=== PATIENT | female | born 2000 | race Caucasian/White ===

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

== ENCOUNTER 2020-02-05 20:23 | Emergency (ER) | payer OTHER ==
[~2020-02-05] VITALS: Ht 152.4 cm; Wt 74.4 kg
== END 2020-02-05 22:00 | disposition left against medical advice (07) ==
LOC: ED 20:23
DX: O26.893 Other specified pregnancy related conditions, third trimester (principal); O99.333 Smoking (tobacco) complicating pregnancy, third trimester; R10.2 Pelvic and perineal pain; F17.200 Nicotine dependence, unspecified, uncomplicated; Z3A.32 32 weeks gestation of pregnancy

== ENCOUNTER → 2020-02-08 | Outpatient (CLI) | payer OTHER ==
[2020-02-08 08:43] LABS: BASO % 0.4 % (0.0-1.0); EOS # 0.2 10*3/uL (0.0-0.4); EOS % 1.7 % (1.0-4.0); HEMATOCRIT 32.9 % (37.0-47.0); LYMPH # 2.6 10*3/uL (1.3-4.4); LYMPH % 24.3 % (27.0-41.0); MEAN CELL VOLUME 93.7 fl (81.0-99.0); MEAN CORPUSCULAR HGB 31.3 pg (27.0-31.0); MEAN CORPUSCULAR HGB CONC 33.4 g/dl (33.0-37.0); MEAN PLATELET VOLUME 10.5 fl (9.6-12.3); MONO # 0.9 10*3/uL (0.1-1.0); NEUT % 64.3 % (47.0-73.0); PLATELET COUNT AUTOMATED 160 10*3/uL (130-400); RED BLOOD COUNT 3.51 10*6/uL (4.10-5.10); RED CELL DISTRI WIDTH 12.6 % (0-14.5); WHITE BLOOD COUNT 10.9 10*3/uL (4.8-10.8)
[2020-02-08 09:39] VITALS: BP 92/44
== END | disposition home or self-care (01) ==
LOC: INJECTION 02-07 09:00 → LAB 08:23 → INJECTION 10:00
PROVIDERS: Obstetrics & Gynecology
DX: O26.893 Other specified pregnancy related conditions, third trimester (principal); O24.419 Gestational diabetes mellitus in pregnancy, unspecified control; O99.333 Smoking (tobacco) complicating pregnancy, third trimester; F17.200 Nicotine dependence, unspecified, uncomplicated; Z3A.32 32 weeks gestation of pregnancy; Z67.41 Type O blood, Rh negative

== ENCOUNTER → 2020-02-14 | Outpatient (CLI) | payer OTHER | END | disposition home or self-care (01) | LOC: LAB 08:42 | DX: R73.09 Other abnormal glucose (principal) ==

== ENCOUNTER 2020-12-28 16:00 | Emergency (ER) | payer OTHER ==
[~2020-12-28] VITALS: Ht 152.4 cm; Wt 63.5 kg
[2020-12-28 16:34] LABS: BASO # 0.1 10*3/uL (0.0-0.1); BASO % 0.6 % (0.0-1.0); EOS # 0.1 10*3/uL (0.0-0.4); LYMPH # 2.6 10*3/uL (1.3-4.4); LYMPH % 26.5 % (27.0-41.0); MEAN CELL VOLUME 89.6 fl (81.0-99.0); MEAN CORPUSCULAR HGB 29.8 pg (27.0-31.0); MEAN CORPUSCULAR HGB CONC 33.3 g/dl (33.0-37.0); MEAN PLATELET VOLUME 10.6 fl (9.6-12.3); MONO # 0.5 10*3/uL (0.1-1.0); MONO % 5.2 % (3.0-9.0); NEUT # 6.6 10*3/uL (2.3-7.9); NEUT % 66.4 % (47.0-73.0); PLATELET COUNT AUTOMATED 250 10*3/uL (130-400); WHITE BLOOD COUNT 9.9 10*3/uL (4.8-10.8)
[2020-12-28 16:51] LABS: ALBUMIN 4.1 gm/dl (3.1-4.5); ALKALINE PHOSPHATASE 90 U/L (45-117); BUN 10 mg/dl (7-24); CHLORIDE 108 mmol/L (98-107); CREATININE 0.63 mg/dL (0.55-1.02); POTASSIUM 3.6 mmol/L (3.5-5.1); SGOT/AST 10 IU/L (3-35); SGPT/ALT 20 U/L (12-78); SODIUM 139 mmol/L (136-145); TOTAL PROTEIN 7.4 gm/dL (6.4-8.2)
== END 2020-12-28 19:38 | disposition home or self-care (01) ==
LOC: ED 16:00
PROVIDERS: Physician Assistant
DX: O20.9 Hemorrhage in early pregnancy, unspecified (principal); F17.200 Nicotine dependence, unspecified, uncomplicated; Z3A.01 Less than 8 weeks gestation of pregnancy

== ENCOUNTER → 2021-02-20 | Outpatient (CLI) | payer OTHER | END | disposition home or self-care (01) | LOC: US 15:30 | PROVIDERS: ATTEND Nurse Practitioner Women's Health | DX: Z34.82 Encounter for supervision of other normal pregnancy, second trimester (principal); Z3A.14 14 weeks gestation of pregnancy ==

== ENCOUNTER 2022-08-18 10:01 | Emergency (ER) | payer OTHER ==
[~2022-08-18] VITALS: Ht 152.4 cm; Wt 63.5 kg
== END 2022-08-18 12:58 | disposition home or self-care (01) ==
LOC: ED 10:01
DX: O21.9 Vomiting of pregnancy, unspecified (principal); Z20.822 Contact with and (suspected) exposure to COVID-19; Z3A.01 Less than 8 weeks gestation of pregnancy

== ENCOUNTER 2022-08-31 23:29 | Emergency (ER) | payer OTHER ==
[2022-09-01 00:38] LABS: BILIRUBIN Negative (Negative); BLOOD Negative (Negative); CLARITY Clear (Clear); COLOR Yellow (Yellow); GLUCOSE Negative (Negative); KETONE 1+ (Negative); LEUKO ESTERASE 2+ (Negative); NITRITE Negative (Negative); PH 5.5 (4.5-8.0); SPECIFIC GRAVITY 1.015 (1.001-1.030); UROBILINOGEN 0.2 E.U./dl (0.0-1.0)
[2022-09-01 00:48] LABS: BACTERIA 1+
[2022-09-01] MEDS ORDERED: CEPHALEXIN500 M1 PO (03:38)
== END 2022-09-01 03:41 | disposition home or self-care (01) ==
LOC: ED 23:29
PROVIDERS: Emergency Medicine
DX: O23.91 Unspecified genitourinary tract infection in pregnancy, first trimester (principal); U07.1 COVID-19; O98.511 Other viral diseases complicating pregnancy, first trimester; Z3A.01 Less than 8 weeks gestation of pregnancy; G43.909 Migraine, unspecified, not intractable, without status migrainosus

== ENCOUNTER 2023-01-31 16:02 | Emergency (ER) | payer OTHER ==
[~2023-01-31] VITALS: Ht 152.4 cm; Wt 70.8 kg
[2023-01-31 16:57] LABS: BILIRUBIN Negative (Negative); BLOOD Negative (Negative); CLARITY Clear (Clear); COLOR Yellow (Yellow); GLUCOSE Negative (Negative); KETONE Negative (Negative); LEUKO ESTERASE 2+ (Negative); NITRITE Negative (Negative); SPECIFIC GRAVITY 1.025 (1.001-1.030)
[2023-01-31 17:30] LABS: EPITHELIAL CELLS TNTC; WBC 16-20 wbc/hpf (0-5)
[2023-01-31 17:31] LABS: BACTERIA 2+
[2023-01-31] MEDS ORDERED: CEPHALEXIN500 M1 PO (17:55)
== END 2023-01-31 17:59 | disposition home or self-care (01) ==
LOC: ED 16:02
PROVIDERS: Internal Medicine
DX: O23.43 Unspecified infection of urinary tract in pregnancy, third trimester (principal); N39.0 Urinary tract infection, site not specified; Z3A.29 29 weeks gestation of pregnancy; Z87.891 Personal history of nicotine dependence

== ENCOUNTER → 2024-01-25 | Day surgery (SDC) | payer OTHER ==
[2023-12-31 14:36] VITALS: BP 96/54
[~2024-01-25] VITALS: Ht 152.4 cm; Wt 61.2 kg
[~2024-01-25] MED LIST changes: +GLYCOPYRROLATE IN WATER/PF 0.4 MG/2 ML SYRINGE IV ONE; +Lactated Ringer's Solution 1,000 ML IV ONE; +Midazolam Hydrochloride 2 MG/2 ML VIAL IV ONE; +Neostigmine Methylsulfate 3 MG/3 ML SYRINGE IV ONE; +Ondansetron Hydrochloride 4 MG/2 ML VIAL IV ONE; +PROPOFOL 200 MG/20 ML VIAL IV ONE; +SEVOFLURANE 250 ML BOT INH ONE
[2024-01-25 08:16] VITALS: BP 116/62
[2024-01-25 10:58] VITALS: BP 116/67
[2024-01-25 11:13] VITALS: BP 106/57
[2024-01-25 11:28] VITALS: BP 99/56
[2024-01-25 11:43] VITALS: BP 108/49
[2024-01-25 11:55] VITALS: BP 105/59
== END | disposition home or self-care (01) ==
LOC: SDC 12-31 14:00
PROVIDERS: ATTEND Obstetrics & Gynecology
DX: Z30.2 Encounter for sterilization (principal); F41.9 Anxiety disorder, unspecified; F17.210 Nicotine dependence, cigarettes, uncomplicated

== ENCOUNTER 2024-02-06 02:48 | Emergency (ER) | payer OTHER ==
[~2024-02-06] VITALS: Ht 152.4 cm; Wt 59.9 kg
[~2024-02-06 02:48] MED LIST changes: -GLYCOPYRROLATE IN WATER/PF 0.4 MG/2 ML SYRINGE IV ONE; -Lactated Ringer's Solution 1,000 ML IV ONE; -Midazolam Hydrochloride 2 MG/2 ML VIAL IV ONE; -Neostigmine Methylsulfate 3 MG/3 ML SYRINGE IV ONE; -Ondansetron Hydrochloride 4 MG/2 ML VIAL IV ONE; -PROPOFOL 200 MG/20 ML VIAL IV ONE; -SEVOFLURANE 250 ML BOT INH ONE
[2024-02-06] MEDS ORDERED: AMOX-CLAV 875-1 EACH PO (03:04)
[2024-02-06] MEDS ORDERED: Amoxicillin/Clavulanate Pota 875 MG TAB PO ONE (03:05)
[2024-02-06] MEDS ORDERED: ACETAMINOPHEN 325 MG TAB PO ONE (03:05)
== END 2024-02-06 03:32 | disposition home or self-care (01) ==
LOC: ED 02:48
DX: K04.7 Periapical abscess without sinus (principal); F17.210 Nicotine dependence, cigarettes, uncomplicated